=== PATIENT | male | born 1940 | race Caucasian/White ===

== ENCOUNTER 2018-10-06 06:16 | Emergency (ER) | payer MEDICARE, OTHER ==
[~2018-10-06] VITALS: Ht 162.6 cm; Wt 77.1 kg
[~2018-10-06 06:16] MED LIST: DOXYCYCLINE MO100 MG ORAL; IPRATROPIU0.2 MG/1 M HHN; LEVOFLOXACIN500 MG ORAL; NORVASC5 MG ORAL; PREDNISONE20 MG ORAL; THEOPHYLLINE A100 MG ORAL; UNOBMED
[2018-10-06 06:24] VITALS: BP 125/69
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
[2018-10-06] MEDS ORDERED: Methocarbamol 750mg tab ORAL ONE (06:30)
[2018-10-06] MEDS ORDERED: Ketorolac 30mg Inj IV ONE (06:30)
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
--- NOTE | 2018-10-06 06:58 | NUR ---
ER Nurse Note: Report given to oncoming nurse for continuity of care. Pt in radiology. Spouse at bedside.
--- NOTE | 2018-10-06 07:14 | NUR ---
ED Nurse Note: pt went back from ct with tech. pt denies pain at the moment. pt stated he is ready to go home
[2018-10-06] MEDS ORDERED: ACETAMINOPHEN325 M1 ORAL (07:24)
[2018-10-06] MEDS ORDERED: IBUPROFEN600 MG ORAL (07:24)
[2018-10-06] MEDS ORDERED: ROBAXIN-750750 MG PO (07:24)
[2018-10-06 07:28] VITALS: BP 120/64
--- NOTE | 2018-10-06 07:28 | NUR ---
ER DISCHARGE NOTE: Patient is cleared to be discharged per ERMD, pt is aox4, on room air, with stable vital signs. pt was given dc and prescription instructions, pt was able to verbalize understanding, pt id band removed without complications. pt is able to ambulate with steady gait. pt took all belongings.
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
== END 2018-10-06 07:28 | disposition home or self-care (01) ==
LOC: EMR 06:43
DX: R19.02 Left upper quadrant abdominal swelling, mass and lump (principal); D73.4 Cyst of spleen; J44.9 Chronic obstructive pulmonary disease, unspecified; I10 Essential (primary) hypertension; R07.9 Chest pain, unspecified; Z88.7 Allergy status to serum and vaccine
CPT/HCPCS: 71101; 96374; 99284; J1885

== ENCOUNTER 2018-11-03 13:06 | Emergency (ER) | payer MEDICARE ==
[~2018-11-03] VITALS: Ht 167.6 cm; Wt 72.6 kg
[~2018-11-03 13:06] MED LIST changes: +ACETAMINOPHEN325 M1 ORAL; +IBUPROFEN600 MG ORAL; +ROBAXIN-750750 MG PO
--- NOTE | 2018-11-03 13:15 | NUR ---
ED Nurse Note: Patient walked into ED from home accompanied by his c/o generalized weakness for the past 2 weeks. patient reports shortness of breath, "trouble breathing." patient is alert awake x4 ambulatory steady gait. at bedside.
[2018-11-03] MEDS ORDERED: ALBUTEROL SULF8.5 GM INH (13:18)
--- NOTE | 2018-11-03 13:18 | Emergency Room Report ---
History of Present Illness General Chief Complaint: Upper Respiratory Illness Source: Patient Present Illness HPI [age]-year-old male history of COPD presents with shortness of breath x2 weeks, no aggravating or alleviating factors, patient states he had a URI, is been coughing with sputum production, he endorses some subjective fever/chills, no chest pain no abdominal pain no dyspnea on exertion, he endorses shortness of breath, he does endorse some congestion Allergies: Coded Allergies: INFLUENZA VIRUS VACCINES (Unverified Allergy, Unknown, 10/27/15) Patient History Past Medical History: see triage record Reviewed Nursing Documentation: PMH: Agreed; PSxH: Agreed Nursing Documentation-PMH Past Medical History: No History, Except For Hx Hypertension: Yes Hx COPD: Yes Hx Cancer: No Hx Gastrointestinal Problems: No Hx Neurological Problems: No Review of Systems All Other Systems: negative except mentioned in HPI Physical Exam Vital Signs Date Time Temp Pulse Resp B/P (MAP) Pulse Ox O2 Delivery O2 Flow Rate FiO2 11/03/18 13:08 98.4 78 18 169/77 (107) 92 Room Air Sp02 EP Interpretation: reviewed, normal General Appearance: well appearing, no apparent distress, alert Head: normocephalic, atraumatic Eyes: bilateral eye PERRL, bilateral eye EOMI ENT: uvula midline, moist mucus membranes Neck: supple, thyroid normal, supple/symm/no masses Respiratory: no respiratory distress, no retraction, no accessory muscle use, decreased breath sounds - bilaterally Cardiovascular #1: normal peripheral pulses, regular rate, rhythm, no edema, no gallop, no murmur Gastrointestinal: non tender, soft, no guarding, no rebound Musculoskeletal: normal inspection Neurologic: alert, oriented x3 Psychiatric: mood/affect normal Skin: no rash, warm/dry Medical Decision Making Diagnostic Impression: Primary Impression: Upper respiratory infection Qualified Codes: J06.9 - Acute upper respiratory infection, unspecified Additional Impression: COPD exacerbation ER Course 78-year-old male history of COPD presents with acute COPD exacerbation, patient states he does not want to be admitted differential diagnosis includes URI, pneumonia, COPD exacerbation Patient with reduced lung sounds bilaterally Patient improved with 6 rounds of duo nebs, patient feels better wants to leave Ceftriaxone, Azithro given to patient Patient given steroids Reevaluation 2:17 PM, patient's breathing significantly improved airway movement significantly improved disposition home with return precautions Laboratory Tests Test 11/03/18 14:00 White Blood Count 12.7 K/UL (4.8-10.8) H Red Blood Count 4.80 M/UL (4.70-6.10) Hemoglobin 14.4 G/DL (14.2-18.0) Hematocrit 42.5 % (42.0-52.0) Mean Corpuscular Volume 88 FL (80-99) Mean Corpuscular Hemoglobin 29.9 PG (27.0-31.0) Mean Corpuscular Hemoglobin Concent 33.8 G/DL (32.0-36.0) Red Cell Distribution Width 11.7 % (11.6-14.8) Platelet Count 406 K/UL (150-450) Mean Platelet Volume 5.6 FL (6.5-10.1) L Neutrophils (%) (Auto) % (45.0-75.0) Lymphocytes (%) (Auto) % (20.0-45.0) Monocytes (%) (Auto) % (1.0-10.0) Eosinophils (%) (Auto) % (0.0-3.0) Basophils (%) (Auto) % (0.0-2.0) Differential Total Cells Counted 100 Neutrophils % (Manual) 84 % (45-75) H Lymphocytes % (Manual) 12 % (20-45) L Monocytes % (Manual) 4 % (1-10) Eosinophils % (Manual) 0 % (0-3) Basophils % (Manual) 0 % (0-2) Band Neutrophils 0 % (0-8) Platelet Estimate Adequate Platelet Morphology Normal Red Blood Cell Morphology Normal Prothrombin Time 10.7 SEC (9.30-11.50) Prothrombin Time INR 1.0 (0.9-1.1) PTT 27 SEC (23-33) Urine Color Pale yellow Urine Appearance Clear Urine pH 8 (4.5-8.0) Urine Specific [place] 1.010 (1.005-1.035) Urine Protein Negative (NEGATIVE) Urine Glucose (UA) Negative (NEGATIVE) Urine Ketones Negative (NEGATIVE) Urine Blood Negative (NEGATIVE) Urine Nitrite Negative (NEGATIVE) Urine Bilirubin Negative (NEGATIVE) Urine Urobilinogen Normal MG/DL (0.0-1.0) Urine Leukocyte Esterase Negative (NEGATIVE) Sodium Level 138 MMOL/L (136-145) Potassium Level 4.5 MMOL/L (3.5-5.1) Chloride Level 100 MMOL/L (98-107) Carbon Dioxide Level 27 MMOL/L (21-32) Anion Gap 11 mmol/L (5-15) Blood Urea Nitrogen 10 mg/dL (7-18) Creatinine 1.0 MG/DL (0.55-1.30) Estimate Glomerular Filtration Rate mL/min (>60) Glucose Level 121 MG/DL (74-106) H Calcium Level 9.6 MG/DL (8.5-10.1) Total Bilirubin 0.6 MG/DL (0.2-1.0) Aspartate Amino Transferase (AST) 13 U/L (15-37) L Alanine Aminotransferase (ALT) 18 U/L (12-78) Alkaline Phosphatase 70 U/L (46-116) Total Creatine Kinase 49 U/L (26-308) Creatine Kinase MB 1.0 NG/ML (0.0-3.6) Creatine Kinase MB Relative Index 2.0 Troponin I 0.000 ng/mL (0.000-0.056) Pro-B-Type Natriuretic Peptide 135 pg/mL (0-125) H Total Protein 7.5 G/DL (6.4-8.2) Albumin 3.7 G/DL (3.4-5.0) Globulin 3.8 g/dL Albumin/Globulin Ratio 1.0 (1.0-2.7) Lipase 102 U/L (73-393) Microbiology Date/Time Source Procedure Growth Status 11/03/18 14:00 Nasal Aspirate - Final Complete 11/03/18 14:00 Nasal Aspirate - Final Complete EKG Diagnostic Results EKG Time: 14:14 EP Interpretation: NSR, rate 79, QTc 449, no acute ST elevations, normal axis Rhythm Strip Diag. Results Rhythm Strip Time: 14:14 EP Interpretation: yes Rate: 85 Rhythm: NSR, no PVC's, no ectopy Chest X-Ray Diagnostic Results Chest X-Ray Diagnostic Results : Chest X-Ray Ordered: Yes # of Views/Limited/Complete: 1 View Indication: Shortness of Breath EP Interpretation: Yes Interpretation: no consolidation, no effusion, no pneumothorax, no acute cardiopulmonary disease Impression: No acute disease Electronically Signed by: Hunter Bassett MD Last Vital Signs Date Time Temp Pulse Resp B/P (MAP) Pulse Ox O2 Delivery O2 Flow Rate FiO2 11/03/18 13:08 98.4 78 18 169/77 (107) 92 Room Air Disposition: HOME, SELF-CARE Condition: Stable Scripts Amoxicillin/Potassium Clav 875-125* (AUGMENTIN 875-125 TABLET*) 1 Each Tablet 1 TAB ORAL TWICE A DAY, #10 TAB Prov: Hunter Bassett MD 11/03/18 Prednisone* (PREDNISONE*) 50 Mg Tablet 50 MG ORAL DAILY, #4 TAB 0 Refills Prov: Hunter Bassett MD 11/03/18 Albuterol Sulfate* (ALBUTEROL SULFATE MDI*) 8.5 Gm Hfa.aer.ad 2 PUFF INH Q4H PRN for cough/wheezing, #1 EA 0 Refills Prov: Hunter Bassett MD 11/03/18 Referrals: [facility] Patient Instructions: Chronic Obstructive Pulmonary Disease Exacerbation, Easy- to-Read, Upper Respiratory Infection, Adult Additional Instructions: The patient was provided with discharge instructions, notified to follow-up with a primary care doctor and or specialist in the next 24-48 hours, and to return to the ED if they have worsening of their symptoms. Please note that this report is being documented using [employer] technology. This can lead to erroneous entry secondary to incorrect interpretation by the dictating instrument. Hunter Bassett MD Nov 03, 2018 13:18
[2018-11-03] MEDS ORDERED: cefTRIAXone 1 GM in NS 55 ML IVPB ONE (13:30)
[2018-11-03] MEDS ORDERED: Azithromycin 500 MG in NS 275 ML IV ONE (13:30)
[2018-11-03] MEDS ORDERED: Dexamethasone 4mg/ml vial IVP ONE (13:30)
[2018-11-03] MEDS ORDERED: Albuterol ud Inhalation HHN ONE (13:30)
[2018-11-03] MEDS ORDERED: Ipratropium 0.02% Inh Soln 2.5ml UD HHN ONE (13:30)
[2018-11-03] MEDS: Albuterol ud Inhalation HHN SCH ×6 (13:33→14:02)
[2018-11-03] MEDS: Ipratropium 0.02% Inh Soln 2.5ml UD HHN SCH ×7 (13:33→14:02)
[2018-11-03] MEDS ORDERED: AUGMENTIN 875-1 EAC1 ORAL (14:17)
[2018-11-03] MEDS ORDERED: PREDNISONE50 MG ORAL (14:17)
[2018-11-03 14:22] LABS: APPEARANCE,URINE CLEAR; BILIRUBIN, URINE NEGATIVE (NEGATIVE); COLOR,URINE PALE YELLOW; GLUCOSE, URINE (UA) NEGATIVE (NEGATIVE); KETONES,URINE NEGATIVE (NEGATIVE); LEUKOCYTE ESTERASE ,URINE NEGATIVE (NEGATIVE); NITRITE,URINE NEGATIVE (NEGATIVE); PH,URINE 8 (4.5-8.0); PROTEIN,URINE NEGATIVE (NEGATIVE); UROBILINOGEN,URINE NORMAL MG/DL (0.0-1.0)
[2018-11-03 14:24] LABS: HEMATOCRIT 42.5 % (42.0-52.0); HEMOGLOBIN 14.4 G/DL (14.2-18.0); MEAN CORPUSCULAR VOLUME 88 FL (80-99); PLATELET COUNT 406 K/UL (150-450); RED CELL DISTRIBUTION WIDTH 11.7 % (11.6-14.8); WHITE BLOOD COUNT 12.7 K/UL (4.8-10.8)
[2018-11-03 14:25] VITALS: BP 123/73
--- NOTE | 2018-11-03 14:26 | Diagnostic Imaging Report ---
Indication: Shortness of breath Technique: One view of the chest Comparison: none Findings: Lungs and pleural spaces are clear. Heart size is normal. There is no significant interim change Impression: No acute process
[2018-11-03 14:33] LABS: ANION GAP 11 mmol/L (5-15); BLOOD UREA NITROGEN 10 mg/dL (7-18); CALCIUM 9.6 MG/DL (8.5-10.1); CARBON DIOXIDE 27 MMOL/L (21-32); CHLORIDE 100 MMOL/L (98-107); POTASSIUM 4.5 MMOL/L (3.5-5.1); SODIUM 138 MMOL/L (136-145)
[2018-11-03 14:46] LABS: ALANINE AMINOTRANSFERASE 18 U/L (12-78); ALBUMIN 3.7 G/DL (3.4-5.0); ALKALINE PHOSPHATASE 70 U/L (46-116); ASPARTATE AMINO TRANSFERASE 13 U/L (15-37); BILIRUBIN,TOTAL 0.6 MG/DL (0.2-1.0); CREATINE KINASE 49 U/L (26-308)
[2018-11-03 15:30] VITALS: BP 131/75
[2018-11-03 15:33] VITALS: BP 131/75
--- NOTE | 2018-11-03 15:33 | NUR ---
ER DISCHARGE NOTE: Patient is cleared to be discharged per ERMD DR DOYLE and DR GAMEZ, pt is aox4, on room air, with stable vital signs. pt was given dc and prescription instructions, pt was able to verbalize understanding, pt id band and iv site removed without complications. pt is able to ambulate with steady gait. pt took all belongings.
--- NOTE | 2018-11-04 13:22 | Cardiology Report ---
APPROVED REPORT EKG Measurement Heart [id number] Normal sinus rhythm with sinus arrhythmia Normal ECG
== END 2018-11-03 15:33 | disposition home or self-care (01) ==
LOC: EMR 14:00
DX: J44.1 Chronic obstructive pulmonary disease with (acute) exacerbation (principal); J06.9 Acute upper respiratory infection, unspecified; Z88.7 Allergy status to serum and vaccine
CPT/HCPCS: 36415; 71045; 80053; 81003; 82550; 82553; 83690; 83880; 84484; 85007; 85025; 85610; 85730; 86710; 93005; 94640; 94664; 96361; 96365; 96367; 96375; 99284; J0456; J0696; J1100; J7050